=== PATIENT | female | born 1995 | race Caucasian/White ===

== ENCOUNTER → 2021-12-02 15:17 | Outpatient (CLI) | payer OTHER, SELFPAY ==
[2021-12-04 09:50] LABS: Urine N gonorrhoeae NOT DETECTED
[2021-12-04 09:51] LABS: Urine Chlamydia NOT DETECTED
== END ==
PROVIDERS: Family Provider Physician Assistant Medical; PCP Physician Assistant Medical; Visit Provider Nurse Practitioner Family
DX: N89.8 Other specified noninflammatory disorders of vagina (principal)
CPT/HCPCS: 87210; 87491; 87591